=== PATIENT | female | born 1955 | race Caucasian/White ===

== ENCOUNTER → 2022-08-05 | Outpatient (CLI) | payer OTHER | END | disposition home or self-care (01) | LOC: DAH 15:20 | PROVIDERS: ATTEND Internal Medicine | DX: S49.92XA Unspecified injury of left shoulder and upper arm, initial encounter (principal); M25.862 Other specified joint disorders, left knee; M25.861 Other specified joint disorders, right knee; M16.0 Bilateral primary osteoarthritis of hip; X58.XXXA Exposure to other specified factors, initial encounter; Y93.89 Activity, other specified; Y92.89 Other specified places as the place of occurrence of the external cause; Y99.8 Other external cause status | CPT/HCPCS: 73030; 73522 ==